=== PATIENT | female | born 1990 | race Caucasian/White ===

== ENCOUNTER 2024-04-24 05:10 | Emergency (ER) | payer OTHER ==
[~2024-04-24] VITALS: Ht 157.5 cm; Wt 86.2 kg
[2024-04-24 05:13] VITALS: BP 103/57; PULSE 75; RESP 16; TEMP 98.2; O2SAT 100
[2024-04-24] MEDS ORDERED: NAPH15DR OP (05:36)
[2024-04-24 05:41] VITALS: BP 103/57; PULSE 75; RESP 16; TEMP 98.2; O2SAT 100
== END 2024-04-24 05:41 | disposition home or self-care (01) ==
LOC: MED 05:10
DX: H10.9 Unspecified conjunctivitis (principal); Z79.899 Other long term (current) drug therapy
CPT/HCPCS: 99282